=== PATIENT | male | born 1985 | race Caucasian/White ===

== ENCOUNTER 2017-04-19 12:42 | Emergency (ER) | payer BC ==
[2017-04-19 12:53] VITALS: BP 134/89
--- NOTE | 2017-04-19 13:23 | EDM.PDOC ---
ED HPI GENERAL MEDICAL PROBLEM - General Chief Complaint: Respiratory Problem Stated Complaint: SOB Time Seen by Provider: 04/19/17 13:00 Source of Information: Reports: Patient History Limitations: Reports: No Limitations - History of Present Illness INITIAL COMMENTS - FREE TEXT/NARRATIVE: 31-year-old male presents for evaluation and treatment of left-sided rib pain. Patient reports he was at work on 04-12-17. He states that he had a seizure and fell off a stool. He reviewed the surveillance tape and states that he went backwards. He is currently complaining of left-sided chest pain since the fall. He also appreciates that he has pain with deep inspiration and feels short of breath. Patient does have a seizure disorder. He states he's been taking his medications daily as prescribed. He has not appreciated any seizures more than normal. He did state this was a normal seizure for him. He was not seen on for the seizure. Currently complaining of left-sided rib pain. No lightheadedness, dizziness, syncope since the incident, headaches, neck pain, back pain or abdominal pain. He has not appreciated any bruising to the chest. Location: Reports: Chest Left Chest Pain Score (Numeric/FACES): 10 - Related Data Allergies Allergy/AdvReac Type Severity Reaction Status Date / Time lacosamide [From Vimpat] Allergy Joint Pain Verified 05/26/14 20:10 grain dust Allergy Cannot Uncoded 05/17/15 04:58 Remember Home Meds: Home Meds OXcarbazepine [Trileptal] 1,200 mg PO BID 09/10/13 [History] PHENobarbital 194.4 mg PO BEDTIME 09/10/13 [History] Multivitamin with Minerals [Multiple Vitamin] 1 tab PO DAILY 02/25/15 [History] LORazepam [Ativan] 1 mg PO ONCALL PRN #12 tablet 05/17/15 [Rx] Dimenhydrinate [Motion Sickness Relief] 50 mg PO ASDIRECTED PRN 05/14/16 [ History] Past Medical History HEENT History: Reports: Impaired Vision Other HEENT History: Wears glasses Cardiovascular History: Reports: Other (See Below) Other Cardiovascular History: Borderline htn Neurological History: Reports: Seizure - Past Surgical History GI Surgical History: Reports: Hernia, Inguinal, Hernia Repair/Other Social & Family History - Tobacco Use Smoking Status *Q: Never Smoker Second Hand Smoke Exposure: No - Caffeine Use Caffeine Use: Reports: Tea Other Caffeine Use: ice tea - Alcohol Use Days Per Week of Alcohol Use: 0 - Recreational Drug Use Recreational Drug Use: No ED ROS GENERAL - Review of Systems Review Of Systems: See Below Respiratory: Reports: Shortness of Breath Cardiovascular: Reports: Chest Pain GI/Abdominal: Denies: Abdominal Pain : Denies: Hematuria Musculoskeletal: Denies: Neck Pain, Back Pain Skin: Denies: Bruising Neurological: Reports: Seizure (has seizure disorder, last seizure 04-12-17). Denies: Headache, Syncope ED EXAM, GENERAL - Physical Exam Exam: See Below Exam Limited By: No Limitations General Appearance: Alert, WD/WN, No Apparent Distress Eye Exam: Bilateral Eye: Normal Inspection Ears: Normal External Exam Nose: Normal Inspection Throat/Mouth: Normal Inspection, Normal Voice, No Airway Compromise Neck: Normal Inspection, Supple, Non-Tender, Full Range of Motion Respiratory/Chest: No Respiratory Distress, Lungs Clear, Normal Breath Sounds Cardiovascular: Normal Peripheral Pulses, Regular Rate, Rhythm, No Murmur GI/Abdominal: Normal Bowel Sounds, Soft, Non-Tender Extremities: Normal Inspection Neurological: Alert, Oriented, Normal Cognition, Normal Gait Psychiatric: Normal Affect, Normal Mood Skin Exam: Warm, Dry, Normal Color Course - Vital Signs Last Recorded V/S: Last Vital Signs Temp 36.2 C 04/19/17 12:51 Pulse 105 H 04/19/17 12:51 Resp 20 04/19/17 12:51 BP 134/89 04/19/17 12:51 Pulse Ox 96 04/19/17 12:51 - Orders/Labs/Meds Orders: Active Orders 24 hr Category Date Time Status Ribs 2V w Chest Lt [CR] Stat Exams 04/19/17 13:10 Ordered - Radiology Interpretation Free Text/Narrative:: Chest and left ribs: Frontal view of the chest was obtained as well as 4 views of the left ribs. Comparison: Prior chest x-ray of 02/25/15. Heart size and mediastinum are normal. Lungs are clear. No discrete fracture or other left-sided rib abnormality is appreciated. Impression: 1. Nothing acute is appreciated on accompanying chest x-ray. No discrete left- sided rib abnormality is appreciated. Nondisplaced fracture could easily be missed. - Re-Assessments/Exams Free Text/Narrative Re-Assessment/Exam: 04/19/17 13:50 I reviewed the x-ray results with the patient. No obvious rib abnormality is identified. No pneumothorax or hemothorax. Formal radiology read pending. Will notify if any abnormalities seen on formal radiology read. restrictions given for work. Discharge instructions as documented. Departure - Departure Time of Disposition: 13:54 Disposition: Home, Self-Care 01 Condition: Good Clinical Impression: Rib contusion - Discharge Information Instructions: Rib Contusion Referrals: Funmi Burnett MD [Primary Care Provider] - Forms: ED Department Discharge Additional Instructions: [id number] Tylenol or Motrin as needed for pain relief. Recommend ice or heat to the sore areas for additional pain relief. restrictions for work filled out. No lifting > 5lbs for more than 2 hours x 2 weeks. Follow-up with your primary care provider within 2 weeks for recheck of your symptoms. Please return to the ER if your symptoms change or worsen. - My Orders Last 24 Hours: My Active Orders 04/19/17 13:10 Ribs 2V w Chest Lt [CR] Stat - Assessment/Plan Last 24 Hours: My Active Orders 04/19/17 13:10 Ribs 2V w Chest Lt [CR] Stat
--- NOTE | 2017-04-19 15:01 | CR ---
Chest and left ribs: Frontal view of the chest was obtained as well as 4 views of the left ribs. Comparison: Prior chest x-ray of 02/25/15. Heart size and mediastinum are normal. Lungs are clear. No discrete fracture or other left-sided rib abnormality is appreciated. Impression: 1. Nothing acute is appreciated on accompanying chest x-ray. No discrete left-sided rib abnormality is appreciated. Nondisplaced fracture could easily be missed. Diagnostic code #1
== END 2017-04-19 14:05 | disposition home or self-care (01) ==
LOC: JD.ED 12:42
DX: S20.212A Contusion of left front wall of thorax, initial encounter (principal); G40.909 Epilepsy, unspecified, not intractable, without status epilepticus; Z88.8 Allergy status to other drugs, medicaments and biological substances; Z91.048 Other nonmedicinal substance allergy status; W08.XXXA Fall from other furniture, initial encounter; Y99.0 Civilian activity done for income or pay
CPT/HCPCS: 71101-26-LT; 71101-LT; 99283

== ENCOUNTER 2017-06-19 15:44 | Emergency (ER) | payer BC ==
[2017-06-19 15:57] VITALS: BP 173/111
[2017-06-19] MEDS ORDERED: Acetaminophen 325 MG Tab PO ONE (16:38)
--- NOTE | 2017-06-19 17:03 | EDM.PDOC ---
ED HPI GENERAL MEDICAL PROBLEM - General Chief Complaint: Neurological Problem Stated Complaint: FELL AND BRUISE ON FACE SEIZURE RELATED Time Seen by Provider: 06/19/17 16:28 Source of Information: Reports: Patient History Limitations: Reports: No Limitations - History of Present Illness INITIAL COMMENTS - FREE TEXT/NARRATIVE: 31-year-old male presents for evaluation and treatment of injuries sustained after having a seizure. Reportedly the patient was at work. States that he had a grand mal seizure which he estimates lasted about 1 minute. This occurred around noon today. He states that he fell from a standing position. Believes he hit the left side of his face on a scrubber nearby. He reports that after the seizure he was postictal and felt groggy. Otherwise the seizures seemed like a normal seizure for him. Denies any current headache, nausea or vomiting. Denies any recent fevers, cough or cold symptoms. Reports pain, swelling and bruising to the left adventism. Denies any loss of bowel or bladder. He has a past medical history of seizures and is currently on phenobarbital and Trileptal. Currently sees Dr. crabtree in [place]. Reports they have had difficulty controlling his seizures. Last seizure was June 02, 2017. Onset: Today Location: Reports: Face Head Pain Score (Numeric/FACES): 2 - Related Data Allergies Allergy/AdvReac Type Severity Reaction Status Date / Time lacosamide [From Vimpat] AdvReac Joint Pain Verified 06/21/17 10:22 grain dust Allergy Cannot Uncoded 05/17/15 04:58 Remember Home Meds: Home Meds OXcarbazepine [Trileptal] 1,200 mg PO BID 09/10/13 [History] PHENobarbital 194.4 mg PO BEDTIME 09/10/13 [History] Multivitamin with Minerals [Multiple Vitamin] 1 tab PO DAILY 02/25/15 [History] LORazepam [Ativan] 1 mg PO ONCALL PRN #12 tablet 05/17/15 [Rx] Dimenhydrinate [Motion Sickness Relief] 50 mg PO ASDIRECTED PRN 05/14/16 [ History] Past Medical History HEENT History: Reports: Impaired Vision Other HEENT History: Wears glasses Cardiovascular History: Reports: Other (See Below) Other Cardiovascular History: Borderline htn Neurological History: Reports: Seizure - Past Surgical History GI Surgical History: Reports: Hernia, Inguinal, Hernia Repair/Other Social & Family History - Tobacco Use Smoking Status *Q: Never Smoker Second Hand Smoke Exposure: No - Caffeine Use Caffeine Use: Reports: Soda Other Caffeine Use: ice tea - Alcohol Use Days Per Week of Alcohol Use: 0 - Recreational Drug Use Recreational Drug Use: No ED ROS GENERAL - Review of Systems Review Of Systems: See Below Constitutional: Denies: Fever Respiratory: Denies: Cough GI/Abdominal: Denies: Nausea, Stool Incontinence, Vomiting : Denies: Incontinence Musculoskeletal: Denies: Neck Pain Skin: Reports: Bruising (left adventism and left lateral orbit, reports associated pain and swelling) Neurological: Reports: Seizure. Denies: Headache - Physical Exam Exam: See Below Exam Limited By: No Limitations General Appearance: Alert, WD/WN, No Apparent Distress Eye Exam: Bilateral Eye: EOMI, Normal Inspection, PERRL Ears: Normal External Exam, Normal Canal, Hearing Grossly Normal, Normal TMs Nose: Normal Inspection, No Blood Throat/Mouth: Normal Inspection, Normal Lips, Normal Teeth, Normal Oropharynx, No Airway Compromise Head Exam: Facial Ecchymosis (left adventism ), Facial Swelling (left adventism), Facial Tenderness (left adventism, left lateral orbit). No: Scalp Lacerations, Scalp Abrasions, Scalp Ecchymosis, Scalp Hematoma, Facial Lacerations Neck: Normal Inspection, Supple, Non-Tender, Full Range of Motion Respiratory/Chest: No Respiratory Distress, Lungs Clear, Normal Breath Sounds, Chest Non-Tender Cardiovascular: Normal Peripheral Pulses, Regular Rate, Rhythm, No Murmur GI/Abdominal: Soft, Non-Tender Neuro Exam (Abbreviated): Alert, Oriented, CN II-XII Intact, Normal Cognition, Normal Gait, Other (Normal finger to nose testing. Normal [id number] testing.) Psychiatric: Normal Affect, Normal Mood Skin Exam: Warm, Dry, Ecchymosis (left adventism) Course - Vital Signs Last Recorded V/S: Last Vital Signs Temp 36.2 C 06/19/17 15:53 Pulse 79 06/19/17 15:53 Resp 18 06/19/17 15:53 BP 173/111 H 06/19/17 15:56 Pulse Ox 96 06/19/17 15:53 - Orders/Labs/Meds Meds: Medications Discontinued Medications Generic Name Dose Route Start Last Admin Trade Name Dalia PRN Reason Stop Dose Admin Acetaminophen 975 mg 06/19/17 16:38 06/19/17 16:47 Tylenol PO 06/19/17 16:39 975 mg NOW ONE Administration - Radiology Interpretation Free Text/Narrative:: Head CT Technique: Multiple axial sections through the brain were obtained. Intravenous contrast was not utilized. Comparison: Prior head CT study of 04/29/13. Findings: Ventricles along with basal cisterns and sulci over the convexities are within normal limits for the patient's age. No abnormal parenchymal densities are seen. No evidence of intracranial hemorrhage. No midline shift or mass effect is seen. Bone window settings were reviewed which shows no acute calvarial abnormality. Impression: 1. No acute intracranial abnormality is appreciated. No significant change is seen from prior head CT exam. CT facial bones Technique: Multiple axial sections through the facial bones were obtained. Intravenous contrast was not utilized. Comparison: Previous CT facial bone exam of 04/29/13. Findings: Mastoid sinuses and middle ear cavities are clear. Minimal area of mucosal thickening is seen within the right ethmoid sinus which is incidental. Other sinuses are clear. No air-fluid levels are seen within the paranasal sinuses. Right and left globes are symmetric. No retrobulbar abnormality is seen. No facial bone fracture is identified. Impression: 1. Minimal sinus findings within the right ethmoid sinus which is incidental. 2. No additional abnormality is appreciated on CT study of the facial bones. - Re-Assessments/Exams Free Text/Narrative Re-Assessment/Exam: 06/19/17 17:42 Patient was given tylenol for his pain. I reviewed the imaging with the patient. We will discharge him home. Discharge instructions as documented. Departure - Departure Time of Disposition: 17:42 Disposition: Home, Self-Care 01 Condition: Good Clinical Impression: Injury due to seizures, Contusion - Discharge Information Instructions: Contusion, Zvrq-[id number], Seizure, Adult, [id number] Referrals: Funmi Burnett MD [Primary Care Provider] - Pilar Crabtree MD [Physician] - Forms: ED Department Discharge, ED Return to Work/School Form Additional Instructions: [id number] Tylenol or Motrin as needed for pain relief. Use ice to the swollen area 3 to 4 times a day for 10-15 minutes. May return to work. Follow up with your neurologist for further seizure management. Please return to the ER if your symptoms change or worsen.
--- NOTE | 2017-06-19 17:28 | CT ---
Head CT Technique: Multiple axial sections through the brain were obtained. Intravenous contrast was not utilized. Comparison: Prior head CT study of 04/29/13. Findings: Ventricles along with basal cisterns and sulci over the convexities are within normal limits for the patient's age. No abnormal parenchymal densities are seen. No evidence of intracranial hemorrhage. No midline shift or mass effect is seen. Bone window settings were reviewed which shows no acute calvarial abnormality. Impression: 1. No acute intracranial abnormality is appreciated. No significant change is seen from prior head CT exam. Diagnostic code #1
--- NOTE | 2017-06-19 17:28 | CT ---
CT facial bones Technique: Multiple axial sections through the facial bones were obtained. Intravenous contrast was not utilized. Comparison: Previous CT facial bone exam of 04/29/13. Findings: Mastoid sinuses and middle ear cavities are clear. Minimal area of mucosal thickening is seen within the right ethmoid sinus which is incidental. Other sinuses are clear. No air-fluid levels are seen within the paranasal sinuses. Right and left globes are symmetric. No retrobulbar abnormality is seen. No facial bone fracture is identified. Impression: 1. Minimal sinus findings within the right ethmoid sinus which is incidental. 2. No additional abnormality is appreciated on CT study of the facial bones. Diagnostic code #2
== END 2017-06-19 17:54 | disposition home or self-care (01) ==
LOC: JD.ED 15:44
DX: S00.83XA Contusion of other part of head, initial encounter (principal); G40.409 Other generalized epilepsy and epileptic syndromes, not intractable, without status epilepticus; W18.00XA Striking against unspecified object with subsequent fall, initial encounter; Y99.0 Civilian activity done for income or pay; Z88.8 Allergy status to other drugs, medicaments and biological substances; Z91.09 Other allergy status, other than to drugs and biological substances
CPT/HCPCS: 70450; 70486; 99284; A9270

== ENCOUNTER 2019-05-07 09:40 | Emergency (ER) | payer BC ==
--- NOTE | 2019-05-07 10:14 | EDM.PDOC ---
ED HPI GENERAL MEDICAL PROBLEM - General Chief Complaint: Chest Pain Stated Complaint: CHEST PAIN/ SOB/ARM PAIN Time Seen by Provider: 05/07/19 10:00 - History of Present Illness INITIAL COMMENTS - FREE TEXT/NARRATIVE: [id number] male presents emergency room with inability to catch his breath and left shoulder pain. Patient was brought in by his father who is concerned the patient was having difficulty catching his breath and at that time was complaining of left shoulder pain. Upon arrival to the emergency room he has a seizure he has a history of absence seizures. He is currently taking Trileptal phenobarbital and lisinopril for high blood pressure. He has no history of lung disease or heart problems he has a strong family history of cardiac problems. His seizures are usually triggered by lots of stress. And today has not been too bad. At this time he does not have a headache no chest pain shoulder pain or shortness of breath. Chest Pain Score (Numeric/FACES): 4 Left Arm Pain Score (Numeric/FACES): 7 - Related Data Allergies Allergy/AdvReac Type Severity Reaction Status Date / Time lacosamide [From Vimpat] AdvReac Joint Pain Verified 05/07/19 09:52 grain dust Allergy Cannot Uncoded 11/26/18 08:48 Remember Home Meds: Home Meds OXcarbazepine [Trileptal] 1,200 mg PO BID 09/10/13 [History] PHENobarbitaL [PHENobarbital] 194.4 mg PO BEDTIME 09/10/13 [History] Multivitamin with Minerals [Multiple Vitamin] 1 tab PO DAILY 02/25/15 [History] LORazepam [Ativan] 1 mg PO ONCALL PRN #12 tablet 05/17/15 [Rx] Dimenhydrinate [Motion Sickness Relief] 50 mg PO ASDIRECTED PRN 05/14/16 [ History] Lisinopril 10 mg PO DAILY #30 tablet 11/14/18 [Rx] Diclofenac Sodium [Voltaren] 50 mg PO TID #30 tab.ec 11/26/18 [Rx] Past Medical History HEENT History: Reports: Impaired Vision Other HEENT History: Wears glasses Cardiovascular History: Reports: Hypertension Other Cardiovascular History: Borderline htn Respiratory History: Reports: SOB Neurological History: Reports: Seizure - Past Surgical History GI Surgical History: Reports: Hernia, Inguinal, Hernia Repair/Other Social & Family History - Family History Family Medical History: Noncontributory Cardiac: Reports: Angina, Bypass, High Cholesterol, Hypertension, SOB on Exertion - Tobacco Use Smoking Status *Q: Never Smoker - Caffeine Use Caffeine Use: Reports: Tea Other Caffeine Use: ice tea - Living Situation & Occupation Living situation: Reports: Single Occupation: Employed ED ROS GENERAL - Review of Systems Review Of Systems: See Below Constitutional: Reports: No Symptoms HEENT: Reports: No Symptoms Respiratory: Reports: Other (Difficulty catching his breath) Cardiovascular: Reports: Chest Pain, Other (Left shoulder pain) Endocrine: Reports: No Symptoms GI/Abdominal: Reports: No Symptoms : Reports: No Symptoms Musculoskeletal: Reports: No Symptoms Skin: Reports: No Symptoms Neurological: Reports: Other (Seizures seem to be triggered by stress) Psychiatric: Reports: No Symptoms Hematologic/Lymphatic: Reports: No Symptoms Immunologic: Reports: No Symptoms ED EXAM, GENERAL - Physical Exam Exam: See Below Exam Limited By: No Limitations General Appearance: Alert, No Apparent Distress, Other (He has no pain at this time he has recovered from his seizure) Eye Exam: Bilateral Eye: EOMI, Normal Inspection, PERRL Ears: Normal External Exam, Normal Canal, Hearing Grossly Normal, Normal TMs Nose: Normal Inspection, Normal Mucosa, No Blood Throat/Mouth: Normal Inspection, Normal Lips, Normal Teeth, Normal Gums, Normal Oropharynx, Normal Voice, No Airway Compromise Head: Atraumatic, Normocephalic Neck: Normal Inspection Respiratory/Chest: No Respiratory Distress, Lungs Clear, Normal Breath Sounds Cardiovascular: Regular Rate, Rhythm, No Edema, No Murmur GI/Abdominal: Normal Bowel Sounds, Soft, Non-Tender Neurological: Alert, Oriented, Normal Cognition, Other (Cranial nerve's 2 through 12 grossly intact all muscle groups the upper lower extremities are normal limitations in exam are the limits of remaining on the stretcher during the exam.) Psychiatric: Normal Affect, Normal Mood Skin Exam: Warm, Dry, Intact Lymphatic: No Adenopathy Course - Vital Signs Last Recorded V/S: Last Vital Signs Temp 36.4 C 05/07/19 09:47 Pulse 86 05/07/19 09:47 Resp 16 05/07/19 09:47 BP 120/79 05/07/19 09:47 Pulse Ox 85 L 05/07/19 09:47 - Orders/Labs/Meds Orders: Active Orders 24 hr Category Date Time Status EKG Documentation Completion [RC] STAT Care 05/07/19 10:11 Active Chest 1V Frontal [CR] Stat Exams 05/07/19 10:10 Taken OXCARBAZEPINE [REF] Stat Lab 05/07/19 10:00 Received Labs: Laboratory Tests 05/07/19 05/07/19 05/07/19 Range/Units 10:00 10:00 10:00 WBC 7.70 (4.23-9.07) K/mm3 RBC 5.39 (4.63-6.08) M/mm3 Hgb 15.3 (13.7-17.5) gm/dl Hct 43.9 (40.1-51.0) % MCV 81.4 (79.0-92.2) fl MCH 28.4 (25.7-32.2) pg MCHC 34.9 (32.2-35.5) g/dl RDW Std Deviation 40.4 (35.1-43.9) fL Plt Count 320 (163-337) K/mm3 MPV 9.2 L (9.4-12.3) fl Neutrophils % (Manual) 56 (40-60) % Band Neutrophils % 0 (0-10) % Lymphocytes % (Manual) 26 (20-40) % Atypical Lymphs % 0 % Monocytes % (Manual) 16 H (2-10) % Eosinophils % (Manual) 2 (0.8-7.0) % Basophils % (Manual) 0 L (0.2-1.2) Platelet Estimate Adequate RBC Morph Comment Normal PT 10.3 (9.7-12.0) SECONDS INR 0.94 APTT 26 (22-31) SECONDS D-Dimer, Quantitative (0.19-0.50) mg/L Sodium 144 (136-145) mEq/L Potassium 4.5 (3.5-5.1) mEq/L Chloride 107 (98-107) mEq/L Carbon Dioxide 26 (21-32) mEq/L Anion Gap 15.5 H (5-15) BUN 12 (7-18) mg/dL Creatinine 0.9 (0.7-1.3) mg/dL Est Cr Clr Drug Dosing 130.70 mL/min Estimated GFR (MDRD) > 60 (>60) mL/min BUN/Creatinine Ratio 13.3 L (14-18) Glucose 90 (74-106) mg/dL Calcium 8.6 (8.5-10.1) mg/dL Total Bilirubin 0.3 (0.2-1.0) mg/dL AST 18 (15-37) U/L ALT 41 (16-63) U/L Alkaline Phosphatase 71 (46-116) U/L Troponin I < 0.017 (0.00-0.056) ng/mL Total Protein 7.4 (6.4-8.2) g/dl Albumin 4.3 (3.4-5.0) g/dl Globulin 3.1 gm/dL Albumin/Globulin Ratio 1.4 (1-2) Phenobarbital 29.6 (15.0-40.0) ug/mL 05/07/19 05/07/19 Range/Units 10:00 12:42 WBC (4.23-9.07) K/mm3 RBC (4.63-6.08) M/mm3 Hgb (13.7-17.5) gm/dl Hct (40.1-51.0) % MCV (79.0-92.2) fl MCH (25.7-32.2) pg MCHC (32.2-35.5) g/dl RDW Std Deviation (35.1-43.9) fL Plt Count (163-337) K/mm3 MPV (9.4-12.3) fl Neutrophils % (Manual) (40-60) % Band Neutrophils % (0-10) % Lymphocytes % (Manual) (20-40) % Atypical Lymphs % % Monocytes % (Manual) (2-10) % Eosinophils % (Manual) (0.8-7.0) % Basophils % (Manual) (0.2-1.2) Platelet Estimate RBC Morph Comment PT (9.7-12.0) SECONDS INR APTT (22-31) SECONDS D-Dimer, Quantitative 0.24 (0.19-0.50) mg/L Sodium (136-145) mEq/L Potassium (3.5-5.1) mEq/L Chloride (98-107) mEq/L Carbon Dioxide (21-32) mEq/L Anion Gap (5-15) BUN (7-18) mg/dL Creatinine (0.7-1.3) mg/dL Est Cr Clr Drug Dosing mL/min Estimated GFR (MDRD) (>60) mL/min BUN/Creatinine Ratio (14-18) Glucose (74-106) mg/dL Calcium (8.5-10.1) mg/dL Total Bilirubin (0.2-1.0) mg/dL AST (15-37) U/L ALT (16-63) U/L Alkaline Phosphatase (46-116) U/L Troponin I < 0.017 (0.00-0.056) ng/mL Total Protein (6.4-8.2) g/dl Albumin (3.4-5.0) g/dl Globulin gm/dL Albumin/Globulin Ratio (1-2) Phenobarbital (15.0-40.0) ug/mL Meds: Medications Discontinued Medications Generic Name Dose Route Start Last Admin Trade Name Seanq PRN Reason Stop Dose Admin Aspirin 324 mg 05/07/19 10:25 05/07/19 10:31 Aspirin PO 05/07/19 10:26 324 mg ONETIME ONE Administration Lorazepam 1 mg 05/07/19 10:22 05/07/19 10:27 Ativan IVPUSH 05/07/19 10:23 1 mg ONETIME ONE Administration - Re-Assessments/Exams Free Text/Narrative Re-Assessment/Exam: 05/07/19 13:32 The patient had a witnessed absence type seizure here he was confused for about 15 minutes afterwards. He was given a milligram of Ativan labs ordered. His labs are unrevealing as EKG does not show any acute changes his initial troponin was negative second troponin which was read drawn at 1248 is below the detectable limits that we have. Lab needs to correct the draw time. The patient has follow-up with his regular provider towards the end of May. We discussed stress testing and I will put an outpatient order for him get this done. The patient did get some supplemental oxygen at this time seems to be doing okay on room air Departure - Departure Time of Disposition: 13:37 Disposition: Home, Self-Care 01 Condition: Good Clinical Impression: Chest pain - Discharge Information Referrals: Funmi Burnett MD [Primary Care Provider] - Forms: ED Department Discharge Additional Instructions: Return to the emergency room with any questions problems worsening symptoms. Start baby aspirin 81 mg daily. Follow-up with your stress test. They will contact you to arrange a time and date. Follow-up with your physician as scheduled. Discussed the results of the stress test and also if a overnight sleep study might be of benefit. Sepsis Event Note - Evaluation Sepsis Screening Result: No Definite Risk - Focused Exam Vital Signs: Vital Signs Temp Pulse Resp BP Pulse Ox 05/07/19 09:47 36.4 C 86 16 120/79 85 L Date Exam was Performed: 05/07/19 Time Exam was Performed: 13:48 - My Orders Last 24 Hours: My Active Orders 05/07/19 10:00 OXCARBAZEPINE [REF] Stat 05/07/19 10:10 Chest 1V Frontal [CR] Stat 05/07/19 10:11 EKG Documentation Completion [RC] STAT - Assessment/Plan Last 24 Hours: My Active Orders 05/07/19 10:00 OXCARBAZEPINE [REF] Stat 05/07/19 10:10 Chest 1V Frontal [CR] Stat 05/07/19 10:11 EKG Documentation Completion [RC] STAT
[2019-05-07] MEDS ORDERED: LORazepam 2 MG/ML SDV IVPUSH ONE (10:22)
[2019-05-07] MEDS ORDERED: Aspirin 81 MG Tab.Chew PO ONE (10:25)
[2019-05-07 14:34] VITALS: BP 114/52; PULSE 92
--- NOTE | 2019-05-08 07:07 | CR ---
Chest: Portable view of the chest was obtained. Comparison: Prior chest x-ray of 11/26/18. Heart size and mediastinum are normal. Lungs are clear. Bony structures appear grossly intact. Impression: 1. Nothing acute is seen on portable chest x-ray. Diagnostic code #1 This report was dictated in [place] Standard Time
== END 2019-05-07 14:15 | disposition home or self-care (01) ==
LOC: JD.ED 09:40
DX: R07.9 Chest pain, unspecified (principal); I10 Essential (primary) hypertension; Z91.048 Other nonmedicinal substance allergy status; Z88.8 Allergy status to other drugs, medicaments and biological substances; Z79.899 Other long term (current) drug therapy
CPT/HCPCS: 36415; 71045; 80053; 80183; 80184; 84484; 85007; 85027; 85379; 85610; 85730; 93005; 96374; 99285; A9270; J2060; 93010; 99284

== ENCOUNTER 2019-08-23 14:39 | Emergency (ER) | payer BC ==
--- NOTE | 2019-08-23 15:17 | EDM.PDOC ---
ED HPI GENERAL MEDICAL PROBLEM - General Chief Complaint: Neurological Problem Stated Complaint: [facility] Time Seen by Provider: 08/23/19 15:11 Source of Information: Reports: Patient, Old Records (lab values from earlier this AM), RN Notes Reviewed History Limitations: Reports: No Limitations - History of Present Illness INITIAL COMMENTS - FREE TEXT/NARRATIVE: Patient is a 33-year-old male who presents to the ED via [facility] for the evaluation of his seizure and head injury. Patient notes that he has a history of epilepsy, and he was working at [employer] today, when all of a sudden he started to get an aura like he does before seizure activity starts, he noted his right side to go limp at this time and fell off the chair and ended up striking the left side of his head/temporal region on the outside wall of [facility]. Patient notes that the seizure was short, and he thinks it lasted about 1 minute. He did lose consciousness for a short amount of time during this. Patient notes this is normal course when he has a seizure. Patient states that he came to, knew where he was and what it happened, but does feel slightly fatigued. The patient says he has some mild pain on the left side of his head near the temporal region, and also pain into his left knee, he states that he landed on his left knee when he passed out. Patient does take seizure medications, Trileptal and phenobarbital. His neurologist is Dr. Garcia, and he states that he had blood work done this morning, as he has an appoint with Dr. Garcia on Wednesday. Review of lab values today demonstrate nothing that was emergently abnormal. Sodium was mildly low at 134, otherwise everything is within normal limits. The oxcarbazepine level is still pending as it is the reference lab. Patient is not complaining of any other sick-like symptoms. He has not had any fever/chills, cough/shortness of breath, nausea/vomiting/ diarrhea. He further denies any headache, blurred vision or double vision. Left Knee Pain Score (Numeric/FACES): 3 - Related Data Allergies Allergy/AdvReac Type Severity Reaction Status Date / Time lacosamide [From Vimpat] AdvReac Joint Pain Verified 08/23/19 14:57 grain dust Allergy Cannot Uncoded 08/23/19 14:57 Remember Home Meds: Home Meds OXcarbazepine [Trileptal] 1,200 mg PO BID 09/10/13 [History] PHENobarbitaL [PHENobarbital] 194.4 mg PO BEDTIME 09/10/13 [History] Multivitamin with Minerals [Multiple Vitamin] 1 tab PO DAILY 02/25/15 [History] LORazepam [Ativan] 1 mg PO ONCALL PRN #12 tablet 05/17/15 [Rx] Lisinopril 10 mg PO DAILY #30 tablet 11/14/18 [Rx] Diclofenac Sodium [Voltaren] 50 mg PO TID #30 tab.ec 11/26/18 [Rx] Aspirin 81 mg PO BEDTIME 08/23/19 [History] Past Medical History HEENT History: Reports: Impaired Vision Other HEENT History: Wears glasses Cardiovascular History: Reports: Hypertension Other Cardiovascular History: Borderline htn Respiratory History: Reports: SOB Neurological History: Reports: Seizure (hx/o epilepsy) - Past Surgical History GI Surgical History: Reports: Hernia, Inguinal, Hernia Repair/Other Social & Family History - Family History Family Medical History: Noncontributory Cardiac: Reports: Angina, Bypass, High Cholesterol, Hypertension, SOB on Exertion - Caffeine Use Caffeine Use: Reports: Tea Other Caffeine Use: ice tea - Living Situation & Occupation Living situation: Reports: Single Occupation: Employed ED ROS GENERAL - Review of Systems Review Of Systems: Comprehensive ROS is negative, except as noted in HPI. ED EXAM, NEURO - Physical Exam Exam: See Below Exam Limited By: No Limitations General Appearance: Alert, WD/WN, No Apparent Distress (pt seems slightly fatigued, but is acting appropriate) Eye Exam: Bilateral Eye: EOMI, Normal Inspection, PERRL Ears: Normal External Exam, Normal Canal, Hearing Grossly Normal, Normal TMs Nose: Normal Inspection, Normal Mucosa, No Blood Throat/Mouth: Normal Inspection, Normal Lips, Normal Teeth, Normal Gums, Normal Oropharynx, Normal Voice, No Airway Compromise Head Exam: Atraumatic, Normocephalic, Other (pt does have some tenderness on Left temporal region, no bruising noted) Neck: Normal Inspection, Supple, Non-Tender, Full Range of Motion Respiratory/Chest: No Respiratory Distress, Lungs Clear, Normal Breath Sounds, No Accessory Muscle Use, Chest Non-Tender Cardiovascular: Normal Peripheral Pulses, Regular Rate, Rhythm, No Murmur GI/Abdominal: Normal Bowel Sounds, Soft, Non-Tender, No Distention, No Mass Neurological: Alert, Normal Mood/Affect, Normal Dorsiflexion, CN II-XII Intact ( grossly), Normal Plantar Flexion, Normal Gait, No Motor/Sensory Deficits, Oriented x 3 Extremities: Normal Inspection, Normal Capillary Refill Psychiatric: Normal Affect, Normal Mood Skin Exam: Warm, Dry, Intact, Normal Color, No Rash, Other (small abrasion to left anterior knee surface) Course - Vital Signs Last Recorded V/S: Last Vital Signs Temp 98.5 F 08/23/19 14:50 Pulse 84 08/23/19 14:50 Resp 20 08/23/19 14:50 BP 132/90 08/23/19 14:50 Pulse Ox 96 08/23/19 14:50 - Re-Assessments/Exams Free Text/Narrative Re-Assessment/Exam: 08/23/19 15:24 Patient presents to the ED for his head injury after a seizure. I will get a head CT without contrast and hold off on labs at this time, as his laboratory evaluation was normal earlier today. 08/23/19 15:[address] is normal, and patient is still asymptomatic at this time. Will discharge home with general recommendations have him follow-up with Dr. Garcia on Wednesday. Departure - Departure Time of Disposition: 15:52 Disposition: Home, Self-Care 01 Condition: Good Clinical Impression: Head injury with loss of consciousness, Seizure - Discharge Information *PRESCRIPTION DRUG MONITORING PROGRAM REVIEWED*: No *COPY OF PRESCRIPTION DRUG MONITORING REPORT IN PATIENT MARK: No Instructions: Head Injury, Adult, [id number] Referrals: Funmi Burnett MD [Primary Care Provider] - Forms: ED Department Discharge, ED Return to Work/School Form Additional Instructions: You were seen in the ED for your head injury after your seizure today. You did have a head CT and with was within normal limits. There is no sign of a bleed or fracture. Please keep your appointment with your neurologist on Wednesday. You have been provided with a copy of the labs that have currently resulted from your lab visit this AM, The oxcarbazepine level is still pending and should hopefully be resulted by Wednesday and faxed to Dr. Garcia. Recommend that you go home and get some rest and take it easy for the rest of the day. Please return to the ED if your symptoms should change or worsen. Sepsis Event Note - Evaluation Sepsis Screening Result: No Definite Risk - Focused Exam Vital Signs: Vital Signs Temp Pulse Resp BP Pulse Ox 08/23/19 14:50 98.5 F 84 20 132/90 96 Date Exam was Performed: 08/23/19 Time Exam was Performed: 16:08
--- NOTE | 2019-08-23 15:49 | CT ---
Head CT Technique: Multiple axial sections through the brain were obtained. Intravenous contrast was not utilized. Comparison: Prior head CT study of 11/14/18. Findings: Ventricles along with basal cisterns and sulci over the convexities are within normal limits for the patient's age. No abnormal parenchymal densities are seen. No evidence of intracranial hemorrhage. No midline shift or mass effect is seen. Visualized paranasal sinuses and mastoid sinuses are clear. No acute calvarial abnormality is appreciated. Impression: 1. Nothing acute is appreciated on noncontrast head CT exam. 2. No significant change from previous study is seen. Diagnostic code #1 Study was dictated in MDT
[2019-08-23 16:43] VITALS: BP 117/77; PULSE 86
== END 2019-08-23 16:40 | disposition home or self-care (01) ==
LOC: JD.ED 14:39
DX: S06.9X9A Unspecified intracranial injury with loss of consciousness of unspecified duration, initial encounter (principal); R56.9 Unspecified convulsions; I10 Essential (primary) hypertension; Z79.82 Long term (current) use of aspirin; Z79.899 Other long term (current) drug therapy; Z91.048 Other nonmedicinal substance allergy status; Z88.8 Allergy status to other drugs, medicaments and biological substances; W07.XXXA Fall from chair, initial encounter
CPT/HCPCS: 70450; 70450-26; 99285-25

== ENCOUNTER 2020-07-30 08:19 | Emergency (ER) | payer BC ==
--- NOTE | 2020-07-30 09:09 | EDM.PDOC ---
ED HPI GENERAL MEDICAL PROBLEM - General Chief Complaint: Chest Pain Stated Complaint: ARM PAIN,DIZZY,SWEATY,LIGHTHEADED Time Seen by Provider: 07/30/20 08:50 Source of Information: Reports: Patient History Limitations: Reports: No Limitations - History of Present Illness INITIAL COMMENTS - FREE TEXT/NARRATIVE: 34-year-old male presents to the ED due to a 4-day history of intermittent pain in his left upper extremity primarily in the distribution of the biceps muscle which is even tender to touch. States it is going into intermittent spasm and causing significant discomfort and pain. Similarly yesterday started developing pain in his pectoralis major muscles and upper anterior chest bilaterally. No pain in his back neck lower extremities. He did feel like there was a tight band going across his upper abdomen as well. Patient has a known history of seizure disorder. No recent seizures. He states the pain was so bad that he could not work with his left arm. Note the right patient is right-hand dominant. The arm is sore today but not near as bad as it was yesterday or the day before. He denies taking any supplements other than a daily vitamin. Onset: Sudden Onset Date: 07/27/20 (Left biceps arm pain started 4 days ago. Left anterior chest pain started yesterday.) Duration: Day(s):, Waxing/Waning Location: Reports: Chest (Lateral upper anterior chest pain in the distribution of the pectoralis major muscles.), Upper Extremity, Left (Pain in his biceps muscle with spasm over the last 4 days) Quality: Reports: Ache ( left upper arm.), Sharp, Stabbing, Other Severity: Severe (Strong muscle cramps for no good reason.) Improves with: Reports: None Worsens with: Reports: None Context: Denies: Activity, Exercise, Lifting, Sick Contact, Trauma, Other Associated Symptoms: Reports: Chest Pain, Weakness. Denies: Confusion, Cough, cough w sputum (Chest wall pain.), Diaphoresis, Fever/Chills, Headaches, Loss of Appetite, Malaise, Nausea/Vomiting, Rash, Seizure, Shortness of Breath, Syncope Treatments [employer]LL[employer] COORDINATOR: Reports: Other (see below) (Pain makes the left arm feel weak. None.) Chest Pain Score (Numeric/FACES): 6 - Related Data Allergies Allergy/AdvReac Type Severity Reaction Status Date / Time lacosamide [From Vimpat] AdvReac Joint Pain Verified 07/30/20 08:30 grain dust Allergy Cannot Uncoded 07/30/20 08:30 Remember Home Meds: Home Meds OXcarbazepine [Trileptal] 1,200 mg PO BID 09/10/13 [History] PHENobarbitaL [PHENobarbital] 194.4 mg PO BEDTIME 09/10/13 [History] Multivitamin with Minerals [Multiple Vitamin] 1 tab PO DAILY 02/25/15 [History] LORazepam [Ativan] 1 mg PO ONCALL PRN #12 tablet 05/17/15 [Rx] Lisinopril 10 mg PO DAILY #30 tablet 11/14/18 [Rx] Aspirin 81 mg PO BEDTIME 08/23/19 [History] Past Medical History HEENT History: Reports: Impaired Vision Other HEENT History: Wears glasses Cardiovascular History: Reports: Hypertension Other Cardiovascular History: Borderline htn Respiratory History: Reports: SOB Musculoskeletal History: Reports: Other (See Below) Other Musculoskeletal History: L) arm muscle injury. Neurological History: Reports: Seizure Other Neuro History: epilepsy. - Infectious Disease History Infectious Disease History: Reports: Chicken Pox, Influenza - Past Surgical History HEENT Surgical History: Reports: Adenoidectomy, Tonsillectomy GI Surgical History: Reports: Hernia, Inguinal, Hernia Repair/Other Social & Family History - Family History Family Medical History: No Pertinent Family History Cardiac: Reports: Angina, Bypass, High Cholesterol, Hypertension, SOB on Exertion - Tobacco Use Tobacco Use Status *Q: Never Tobacco User Second Hand Smoke Exposure: No - Caffeine Use Caffeine Use: Reports: Soda Other Caffeine Use: ice tea - Recreational Drug Use Recreational Drug Use: No - Living Situation & Occupation Living situation: Reports: Single Occupation: Employed ED [facility] GENERAL - Review of Systems Review Of Systems: See Below Constitutional: Reports: Weakness, Fatigue (Upper extremity), Diaphoresis. Denies: Chills, Malaise, Night Sweats, Decreased Appetite, Weight Loss, Weight Gain HEENT: Reports: Glasses Respiratory: Reports: Other (Chest wall pain). Denies: Shortness of Breath, Wheezing, Pleuritic Chest Pain, Cough, Sputum, Hemoptysis Cardiovascular: Reports: Chest Pain (12 pain both upper anterior pectoralis major distributions). Denies: Blood Pressure Problem, Claudication, Dyspnea on Exertion, Edema, Lightheadedness, Orthopnea, Palpitations Endocrine: Reports: No Symptoms GI/Abdominal: Reports: No Symptoms : Reports: No Symptoms Musculoskeletal: Reports: Other (Ear pain off and on I am severe muscle spasms in the distribution of his biceps muscle left upper extremity for the last 4 days. It is painful to flex the biceps muscle on the left side at this time.) Skin: Reports: No Symptoms Neurological: Reports: Seizure (Seizure disorder) Psychiatric: Reports: No Symptoms ( last one was about a week ago.) Hematologic/Lymphatic: Reports: No Symptoms Immunologic: Reports: No Symptoms ED EXAM, GENERAL - Physical Exam Exam: See Below Exam Limited By: No Limitations General Appearance: Alert, WD/WN, Anxious, Mild Distress, Other (Temperature is 36.1 degrees. Heart rate 100 and sinus respiratory rate is 23 with O2 sats of 99% room air BP is 129/90.) Eye Exam: Bilateral Eye: Normal Inspection (No scleral icterus or blepharal pallor.), PERRL Ears: Normal TMs Throat/Mouth: Normal Inspection, Normal Lips, Normal Teeth, Normal Oropharynx, Other Head: Atraumatic, Normocephalic (Tongue is moist.) Neck: Normal Inspection, Supple, Non-Tender, Full Range of Motion. No: Lymphadenopathy (L), Lymphadenopathy (R) Respiratory/Chest: No Respiratory Distress, Lungs Clear, Normal Breath Sounds, No Accessory Muscle Use, Other (Fall tenderness in ribs 3 4 and 5 bilaterally worse on the left side as compared to the right.) Cardiovascular: Normal Peripheral Pulses, Regular Rate, Rhythm, No Edema, No Gallop, No Murmur, No Rub Peripheral Pulses: 3+: Carotid (L), Carotid (R), Posterior Tibial (L), Posterior Tibial (R), Dorsalis Pedis (L), Dorsalis Pedis (R) GI/Abdominal: Normal Bowel Sounds, Soft, Non-Tender, No Organomegaly, No Mass, Pelvis Stable, Other (Mildly obese.). No: Guarding, Rigid, Rebound, Tender (Male) Exam: No Hernia Back Exam: Normal Inspection, Full Range of Motion. No: CVA Tenderness (L), CVA Tenderness (R) Extremities: Normal Inspection, Normal Range of Motion, No Pedal Edema, Other (Tenderness on palpation of the left biceps musculature as well as the brachial radialis in his left upper extremity. There is tenderness at the insertion of the biceps tendon and on the ulna and in his proximal forearm.). No: Pedal Edema (Pain on the right side.) Neurological: Alert, Oriented, CN II-XII Intact, Normal Cognition Psychiatric: Anxious Skin Exam: Warm, Dry, Intact, Normal Color, No Rash #1 Interpretation EKG Date: 07/30/20 Time: 08:30 Rhythm: Other (Sinus tachycardia) Rate (Beats/Min): 102 [place]: LAD-Left [place] Deviation (Minimal left axis deviation -3 degrees) P-Wave: Enlarged QRS: Other (Tall R wave in lead I consider left ventricular hypertrophy pattern) ST-T: Other (Nonspecific T wave flattening in lead aVL.) QT: Normal EKG Interpretation Comments: Abnormal ECG Course - Vital Signs Last Recorded V/S: Last Vital Signs Temp 36.1 C 07/30/20 08:25 Pulse 100 07/30/20 08:25 Resp 23 H 07/30/20 08:25 BP 129/90 07/30/20 08:25 Pulse Ox 99 07/30/20 08:25 - Orders/Labs/Meds Orders: Active Orders 24 hr Category Date Time Status EKG 12 Lead [EKG Documentation Completion] [RC] STAT Care 07/30/20 08:44 Active PHENOBARBITAL [REF] Stat Lab 07/30/20 08:50 Received Lactated Ringers [Ringers, Lactated] 1,000 ml Med 07/30/20 09:15 Active IV ASDIRECTED Medication Orders Lactated Ringer's (Ringers, Lactated) 1,000 mls @ 500 mls/hr IV [facility]RECTED [facility] Last Admin: 07/30/20 09:18 Dose: 500 mls/hr Documented by: WILLIAM Labs: Laboratory Tests 07/30/20 07/30/20 07/30/20 Range/Units 08:50 08:50 09:35 WBC 6.46 (4.23-9.07) K/mm3 RBC 5.56 (4.63-6.08) M/mm3 Hgb 15.6 (13.7-17.5) gm/dl Hct 45.1 (40.1-51.0) % MCV 81.1 (79.0-92.2) fl MCH 28.1 (25.7-32.2) pg MCHC 34.6 (32.2-35.5) g/dl RDW Std Deviation 41.6 (35.1-43.9) fL Plt Count 342 H (163-337) K/mm3 MPV 9.0 L (9.4-12.3) fl Neut % (Auto) 59.9 (34.0-67.9) % Lymph % (Auto) 19.8 L (21.8-53.1) % Parker % (Auto) 17.2 H (5.3-12.2) % Eos % (Auto) 2.6 (0.8-7.0) Baso % (Auto) 0.3 (0.1-1.2) % Neut # (Auto) 3.87 (1.78-5.38) K/mm3 Lymph # (Auto) 1.28 L (1.32-3.57) K/mm3 Parker # (Auto) 1.11 H (0.30-0.82) K/mm3 Eos # (Auto) 0.17 (0.04-0.54) K/mm3 Baso # (Auto) 0.02 (0.01-0.08) K/mm3 Manual Slide Review Abnormal smear Sodium 137 (136-145) mEq/L Potassium 4.3 (3.5-5.1) mEq/L Chloride 99 (98-107) mEq/L Carbon Dioxide 26 (21-32) mEq/L Anion Gap 16.3 H (5-15) BUN 12 (7-18) mg/dL Creatinine 1.0 (0.7-1.3) mg/dL Est Cr Clr Drug Dosing 116.52 mL/min Estimated GFR (MDRD) > 60 (>60) mL/min BUN/Creatinine Ratio 12.0 L (14-18) Glucose 100 (74-106) mg/dL Lactic Acid 1.3 (0.4-2.0) mmol/L Calcium 9.1 (8.5-10.1) mg/dL Magnesium 2.0 (1.8-2.4) mg/dl Total Bilirubin 0.3 (0.2-1.0) mg/dL AST 17 (15-37) U/L ALT 40 (16-63) U/L Alkaline Phosphatase 58 (46-116) U/L Creatine Kinase 62 (39-308) U/L CK-MB (CK-2) < 0.5 (0-3.6) ng/ml Troponin I < 0.017 (0.00-0.056) ng/mL C-Reactive Protein 0.5 (<1.0) mg/dL Total Protein 7.2 (6.4-8.2) g/dl Albumin 4.2 (3.4-5.0) g/dl Globulin 3.0 gm/dL Albumin/Globulin Ratio 1.4 (1-2) Meds: Medications Generic Name Dose Route Start Last Admin Trade Name Freq PRN Reason Stop Dose Admin Lactated Ringer's 1,000 mls @ 500 mls/hr 07/30/20 09:15 07/30/20 09:18 Ringers, Lactated IV 500 mls/hr ASDIRECTED YAZ Administration - Radiology Interpretation Free Text/Narrative:: 34-year-old male presents to the ED due to recurrent pain in his left upper extremity primarily in the distribution of the left biceps muscle. Intermittent severe muscle spasms cramps have occurred off and on for the last 4 days. Yesterday started developing similar type cramping in his upper anterior chest bilaterally worse on the left side compared to the right. Exam does reveal tenderness throughout the distribution of the pectoralis major muscles bilaterally. Also tenderness in the distribution of his left biceps and brachioradialis tendon. Seems to be getting nonspecific muscle spasms. We will check magnesium levels and routine labs. Appears mildly volume depleted. IV will be D5 normal saline at 500 mils per hour. - Re-Assessments/Exams Free Text/Narrative Re-Assessment/Exam: 07/30/20 09:21 Portable chest x-ray is within normal limits. No pleural effusions no pulmonary infiltrates cardiac silhouette is normal. No pneumothorax. 07/30/20 10:40 Total white count is 6.46 with 60% neutrophils on manual differential. Hemoglobin is 15.6 with hematocrit of 45.1 platelet count 342,000. Mild monocytosis as they are elevated at 17.2. Sodium is 137 with potassium of 4.3 and a chloride of 99. Bicarb is 26 anion gap is 16.3. BUN is 12 with a creatinine of 1.0 and a GFR greater than 60. Glucose is 100. Lactic acid is 1.3 calcium is 9.1 magnesium is 2.0 liver function is normal CPK is 62 CK-MB fraction less than 0.5 troponin I is less than 0.017 C-reactive protein is 0.5. Total protein is 7.2 with an albumin fraction of 4.2. Departure - Departure Time of Disposition: 11:24 Disposition: Home, Self-Care 01 Reason for Transfer *Q: Other Condition: Fair Clinical Impression: Non-cardiac chest pain, Muscle cramping, Volume depletion Referrals: Funmi Burnett MD [Primary Care Provider] - Forms: ED Department Discharge Additional Instructions: Elevation in the emergency room today in regards to cramping particularly appreciated in your left upper biceps and brachial radialis muscle in your left upper arm and in cramping in the pectoralis major muscles in the chest wall. Both are very tender to touch at this time. ECG and chest x-ray were normal. Lab test also reviewed did not reveal any evidence of heart related illness. Your serum electrolytes were normal at this point time but you were found to be mildly volume depleted. You must drink at least 2 Gatorade 20 ounces today to replenish fluids and electrolytes. It is important that you drink some form of juice on a daily basis besides just water. You did receive a liter of Ringer's lactate while in the ED with an improvement in your symptoms. Expect the muscles in your left arm and chest wall to be sore for the next 5 to 7 days and then should be back to normal. Follow-up with personal care physician if any further problems occur. Sepsis Event Note (ED) - Evaluation Sepsis Screening Result: No Definite Risk - Focused Exam Vital Signs: Vital Signs Temp Pulse Resp BP Pulse Ox 07/30/20 08:25 36.1 C 100 23 H 129/90 99 - My Orders Last 24 Hours: My Active Orders 07/30/20 08:44 EKG 12 Lead [EKG Documentation Completion] [RC] STAT 07/30/20 08:50 PHENOBARBITAL [REF] Stat 07/30/20 09:15 Lactated Ringers [Ringers, Lactated] 1,000 ml IV ASDIRECTED - Assessment/Plan Last 24 Hours: My Active Orders 07/30/20 08:44 EKG 12 Lead [EKG Documentation Completion] [RC] STAT 07/30/20 08:50 PHENOBARBITAL [REF] Stat 07/30/20 09:15 Lactated Ringers [Ringers, Lactated] 1,000 ml IV ASDIRECTED
[2020-07-30] MEDS ORDERED: Lactated Ringers 1,000 ML IV SCH (09:15)
--- NOTE | 2020-07-30 09:51 | CR ---
Chest: Portable view of the chest was obtained. Comparison: Prior chest x-ray of 05/07/19. Heart size and mediastinum are normal. Lungs are clear with no acute parenchymal change. No acute osseous finding is appreciated. Impression: 1. Nothing acute is appreciated on portable chest x-ray. Diagnostic code #1
[2020-07-30 14:29] VITALS: BP 130/81; PULSE 84
== END 2020-07-30 12:30 | disposition home or self-care (01) ==
LOC: JD.ED 08:19
DX: R07.89 Other chest pain (principal); R25.2 Cramp and spasm; E86.9 Volume depletion, unspecified; I10 Essential (primary) hypertension; G40.909 Epilepsy, unspecified, not intractable, without status epilepticus; R00.0 Tachycardia, unspecified; E66.9 Obesity, unspecified; Z68.38 Body mass index [BMI] 38.0-38.9, adult; Z91.048 Other nonmedicinal substance allergy status; Z88.8 Allergy status to other drugs, medicaments and biological substances; Z79.82 Long term (current) use of aspirin; Z79.899 Other long term (current) drug therapy
CPT/HCPCS: 36415; 71045; 80053; 80184; 82550; 82553; 83605; 83735; 84484; 85025; 86140; 93005; 99285; J7120; 93010; 99284

== ENCOUNTER 2023-01-03 15:30 | Emergency (ER) | payer BC ==
[2023-01-03] MEDS ORDERED: guaiFENesin 600 MG Tab.ER PO ONE (16:29)
[2023-01-03] MEDS ORDERED: Oxymetazoline 0.05% Nasal Spray 30 ML Bottle NASBOTH ONE (16:29)
[2023-01-03 18:40] VITALS: BP 136/85; PULSE 78
== END 2023-01-03 16:58 | disposition home or self-care (01) ==
LOC: JD.ED 15:30
DX: H66.93 Otitis media, unspecified, bilateral (principal); R09.81 Nasal congestion; Z91.048 Other nonmedicinal substance allergy status; Z79.82 Long term (current) use of aspirin; Z79.899 Other long term (current) drug therapy
CPT/HCPCS: 99283; A9270

== ENCOUNTER 2023-05-06 09:06 | Emergency (ER) | payer BC ==
[2023-05-06] MEDS ORDERED: Sodium Chloride 0.9% 10 ML Syringe FLUSH PRN (09:23)
[2023-05-06 09:34] LABS: BASOPHILS PERCENT AUTO 0.4 % (0.0-1.0); EOSINOPHILS ABSOLUTE AUTO 0.2 K/mm3 (0.0-0.4); EOSINOPHILS PERCENT AUTO 2.4 % (0.0-6.0); HEMOGLOBIN 15.5 gm/dl (14.0-18.0); IMMATURE GRAN ABSOLUTE AUTO 0.02 K/mm3 (0.00-0.05); IMMATURE GRAN PERCENT AUTO 0.3 % (0.0-0.4); LYMPHOCYTES ABSOLUTE AUTO 1.6 K/mm3 (1.0-4.8); LYMPHOCYTES PERCENT AUTO 24.4 % (24.0-44.0); MEAN CORPUSCULAR HEMOGLOBIN 28.4 pg (28.0-32.0); MEAN CORPUSCULAR HGB CONC 34.4 g/dl (32.0-36.0); MEAN CORPUSCULAR VOLUME 82.6 fl (83.0-99.0); MONOCYTES ABSOLUTE AUTO 1.1 K/mm3 (0.0-0.8); MONOCYTES PERCENT AUTO 16.2 % (0.0-8.0); NEUTROPHILS ABSOLUTE AUTO 3.8 K/mm3 (1.8-7.7); NEUTROPHILS PERCENT AUTO 56.3 % (41.0-71.0); PLATELET COUNT,PLT 310 K/mm3 (150-400); RED BLOOD CELL COUNT 5.45 M/mm3 (4.52-5.90); WHITE BLOOD CELL COUNT,WBC 6.72 K/mm3 (3.9-11.3)
[2023-05-06 10:07] LABS: A/G RATIO 1.1 (1-2); ALBUMIN 3.7 g/dl (3.4-5.0); ANION GAP 13.3 (5-15); BILIRUBIN TOTAL 0.3 mg/dL (0.2-1.0); BUN/CREATININE RATIO 12.2 (14-18); CALCIUM 8.7 mg/dL (8.5-10.1); CREATININE 0.9 mg/dL (0.7-1.3); EST CRCL DRUG DOSING (CG) 122.15 mL/min; MAGNESIUM 2.1 mg/dL (1.8-2.4); POTASSIUM,K 4.3 mEq/L (3.5-5.1); PROTEIN TOTAL,TP 7.2 g/dl (6.4-8.2)
[2023-05-06 10:09] LABS: APPEARANCE,URINE CLEAR (Clear); BILIRUBIN,URINE NEGATIVE (Negative); COLOR,URINE YELLOW (Yellow); GLUCOSE,URINE NEGATIVE (Negative); KETONES,URINE NEGATIVE (Negative); LEUKOCYTE ESTERASE,URINE NEGATIVE (Negative); NITRITE,URINE NEGATIVE (Negative); OCCULT BLOOD,URINE NEGATIVE (Negative); PROTEIN,URINE NEGATIVE (Negative); UROBILINOGEN,URINE 0.2 (0.2-1.0)
[2023-05-06 10:53] LABS: BACTERIA,URINE RARE /hpf (FEW); MUCUS,URINE NOT SEEN /hpf (FEW); RBC,URINE 0-5 /hpf (0-5); SQUAMOUS EPITHELIAL CELLS,UR 0-5 /hpf (0-5); WBC,URINE 0-5 /hpf (0-5)
[2023-05-06 11:15] VITALS: BP 155/96; PULSE 76
== END 2023-05-06 11:14 | disposition home or self-care (01) ==
LOC: JD.ED 09:06
DX: R06.00 Dyspnea, unspecified (principal); G40.909 Epilepsy, unspecified, not intractable, without status epilepticus; I10 Essential (primary) hypertension; Z79.82 Long term (current) use of aspirin; Z79.899 Other long term (current) drug therapy; Z88.8 Allergy status to other drugs, medicaments and biological substances
CPT/HCPCS: 36415; 71046; 80053; 81001; 83735; 84484; 85025; 93005; 99285; J3490

== ENCOUNTER 2023-08-23 08:23 | Emergency (ER) | payer OTHER, BC ==
[2023-08-23 09:15] LABS: BASOPHILS PERCENT AUTO 0.4 % (0.0-1.0); EOSINOPHILS ABSOLUTE AUTO 0.3 K/mm3 (0.0-0.4); EOSINOPHILS PERCENT AUTO 3.8 % (0.0-6.0); HEMATOCRIT 41.9 % (42.0-52.0); HEMOGLOBIN 14.5 gm/dl (14.0-18.0); IMMATURE GRAN ABSOLUTE AUTO 0.01 K/mm3 (0.00-0.05); IMMATURE GRAN PERCENT AUTO 0.1 % (0.0-0.4); LYMPHOCYTES ABSOLUTE AUTO 1.6 K/mm3 (1.0-4.8); LYMPHOCYTES PERCENT AUTO 24.1 % (24.0-44.0); MEAN CORPUSCULAR HEMOGLOBIN 28.3 pg (28.0-32.0); MEAN CORPUSCULAR HGB CONC 34.6 g/dl (32.0-36.0); MEAN CORPUSCULAR VOLUME 81.7 fl (83.0-99.0); MEAN PLATELET VOLUME 8.9 fl (9.4-12.4); MONOCYTES ABSOLUTE AUTO 0.9 K/mm3 (0.0-0.8); MONOCYTES PERCENT AUTO 13.4 % (0.0-8.0); NEUTROPHILS PERCENT AUTO 58.2 % (41.0-71.0); PLATELET COUNT,PLT 260 K/mm3 (150-400); RED BLOOD CELL COUNT 5.13 M/mm3 (4.52-5.90); WHITE BLOOD CELL COUNT,WBC 6.81 K/mm3 (3.9-11.3)
[2023-08-23 09:40] LABS: A/G RATIO 1.4 (1-2); ALANINE AMINOTRANSFERASE,ALT 42 U/L (16-63); ALBUMIN 3.8 g/dl (3.4-5.0); ALKALINE PHOSPHATASE 67 U/L (46-116); ANION GAP 15.2 (5-15); ASPARTATE AMNIOTRANSFERASE,AST 18 U/L (15-37); BILIRUBIN TOTAL 0.4 mg/dL (0.2-1.0); BLOOD UREA NITROGEN,BUN 13 mg/dL (7-18); BUN/CREATININE RATIO 16.3 (14-18); CALCIUM 8.5 mg/dL (8.5-10.1); CARBON DIOXIDE,CO2 23 mEq/L (21-32); CHLORIDE,CL 98 mEq/L (98-107); CREATININE 0.8 mg/dL (0.7-1.3); ESTIMATED GFR 116 mL/min (>60); GLUCOSE RANDOM 101 mg/dL (70-99); POTASSIUM,K 4.2 mEq/L (3.5-5.1); PROTEIN TOTAL,TP 6.6 g/dl (6.4-8.2); SODIUM,NA 132 mEq/L (136-145); TROPONIN I HIGH SENSITIVITY 10 pg/mL (<=76)
[2023-08-23 10:11] VITALS: BP 141/95; PULSE 77
== END 2023-08-23 10:13 | disposition home or self-care (01) ==
LOC: JD.ED 08:23
DX: S29.011A Strain of muscle and tendon of front wall of thorax, initial encounter (principal); I10 Essential (primary) hypertension; Z88.8 Allergy status to other drugs, medicaments and biological substances; Z91.048 Other nonmedicinal substance allergy status; Z79.899 Other long term (current) drug therapy; Z79.82 Long term (current) use of aspirin; Z86.19 Personal history of other infectious and parasitic diseases; X50.1XXA Overexertion from prolonged static or awkward postures, initial encounter; Y93.89 Activity, other specified; Y99.0 Civilian activity done for income or pay
CPT/HCPCS: 36415; 71046; 71046-26; 80053; 84484; 85025; 93005; 93010; 99284; 99285